=== PATIENT | female | born 1940 | race Hispanic/Latino ===

== ENCOUNTER 2017-01-10 08:10 | Emergency (ER) | payer BC, MEDICARE ==
--- NOTE | 2017-01-10 09:03 | ED PDOC ---
Arrival/HPI - General Historian: Patient - History of Present Illness Time/Duration: 24 hours Symptom Onset: Sudden Symptom Course: Worsening Quality: Pressure Severity Level: Severe <Cam Chaney - Last Filed: 01/10/17 12:18> <Navid Arechiga - Last Filed: 01/22/17 09:14> - General Chief Complaint: Lower Extremity Problem/Injury Time Seen by Provider: 01/10/17 08:12 - History of Present Illness Narrative History of Present Illness (Text): 01/10/17 08:59 This is a 76 year old female with PMHx DVT in 2008 and currently on Coumadin, HLD, COPD, Asthma who presents complaining of left lower extremity pain. Patient states that this feels worse than it did when she had her DVT in the right leg. Patient states that the pain begins on the back of the thigh and radiates up to the mid posterior thigh. Pain is severe and worsened with ambulation, described as a pressure-like sensation. It began after patient woke up from sleep yesterday. Patient denies fever, chills, chest pain, SOB, abdominal pain, dysuria. (Cam Chaney) Past Medical History - Provider Review Nursing Documentation Reviewed: Yes - Infectious Disease Hx of Infectious Diseases: None - Reproductive Menopause: Yes - Cardiac Other/Comment: DVT, cardiac stent - Pulmonary Hx Pulmonary Embolism: Yes - Psychiatric Hx Substance Use: No - Anesthesia Hx Anesthesia Reactions: No <Cam Chaney - Last Filed: 01/10/17 12:18> Family/Social History - Physician Review Nursing Documentation Reviewed: Yes Family/Social History: No Known Family HX Smoking Status: Current Some Days Smoker Hx Alcohol Use: No Hx Substance Use: No <Cam Chaney - Last Filed: 01/10/17 12:18> Allergies/Home Meds <Cam Chaney - Last Filed: 01/10/17 12:18> <Navid Arechiga - Last Filed: 01/22/17 09:14> Allergies/Adverse Reactions: Allergies Penicillins Allergy (Verified 01/10/17 08:54) RASH Home Medications: Home Meds Medication Instructions Recorded Confirmed Albuterol HFA [Ventolin HFA 90 0.09 mg IH PRN PRN 01/10/17 01/10/17 mcg/actuation (8 g)] Albuterol Sulfate [Proair Hfa] 0.09 mg IH PRN PRN 01/10/17 01/10/17 Clopidogrel [Plavix] 75 mg PO DAILY 01/10/17 01/10/17 Tiotropium [place] Inhaler 0 inhaler INH BID 01/10/17 01/10/17 [Spiriva Inhalation Handihaler Device] Warfarin [Coumadin] 5 mg PO MWF 01/10/17 01/10/17 Warfarin [Coumadin] 10 mg PO QOTHERDAY 01/10/17 01/10/17 Review of Systems - Review of Systems Constitutional: Normal. absent: Fevers Eyes: Normal ENT: Normal Respiratory: Normal. absent: SOB Cardiovascular: Normal. absent: Chest Pain Gastrointestinal: Normal Genitourinary Female: Normal. absent: Dysuria Musculoskeletal: Other (left lower extremity pain) Skin: Normal Neurological: Normal Endocrine: Normal Hemo/Lymphatic: Normal Psychiatric: Normal <Cam Chaney S - Last Filed: 01/10/17 12:18> Physical Exam Vital Signs Reviewed: Yes Temperature: Afebrile Blood Pressure: Hypertensive Pulse: Tachycardic Respiratory Rate: Normal Appearance: Positive for: Well-Appearing Pain Distress: Moderate Mental Status: Positive for: Alert and Oriented X 3 - Systems Exam Head: Present: Atraumatic, Normocephalic Pupils: Present: PERRL Extroacular Muscles: Present: EOMI Conjunctiva: Present: Normal Mouth: Present: Moist Mucous Membranes Neck: Present: Normal Range of Motion Respiratory/Chest: Present: Clear to Auscultation, Good Air Exchange. No: Accessory Muscle Use Cardiovascular: Present: Regular Rate and Rhythm, Normal S1, S2 Abdomen: Present: Normal Bowel Sounds. No: Tenderness, Distention Upper Extremity: Present: Normal Inspection, NORMAL PULSES. No: Edema Lower Extremity: Present: Normal Inspection, CALF TENDERNESS, NORMAL PULSES, Swelling (trace edema around left knee), Other (bilateral venous stasis changes) Neurological: Present: GCS=15, CN II-XII Intact Skin: Present: Warm, Dry Psychiatric: Present: Alert, Oriented x 3 <Cam Chaney S - Last Filed: 01/10/17 12:18> Vital Signs Temp Pulse Resp BP Pulse Ox 01/10/17 11:35 78 18 116/61 99 01/10/17 08:20 98.2 F 92 H 16 158/63 H 95 Medical Decision Making <Cam Chaney - Last Filed: 01/10/17 12:18> - Lab Interpretations I have reviewed the lab results: Yes <Navid Arechiga - Last Filed: 01/22/17 09:14> ED Course and Treatment: 01/10/17 09:05 CBC, CMP, CPK, Left LE duplex 01/10/17 10:33 LE Duplex negative for DVT Ordered Xray of left knee with patella 3 views due to severe tenderness to palpation 01/10/17 12:02 Patient discharged with prescription for Tramadol given that patient used Tylenol and Alieve at home without relief. Patient given information for Dr. Westfall. Patient given cane for ambulation and given instructions to return to the ED if worsening symptoms. Patient plans to follow up with her PMD Dr. Mcbride within the week. (Cam Chaney) In agreement with resident note, which includes further HPI details. Patient was seen and evaluated with resident, came up with plan and treatment together. Patient has prior history of DVT. Denies trauma. There are strong and palpable distal pulses. Exam is NOT consistent with acute arterial occlusion. Ultrasound currently is negative for DVT. There is no fever, warmth or erythema. There is full range of motion of hip, knee and ankle. Limitations of studies reviewed with patient, stressed need for FOLLOW-UP with PMD and orthopedic physician given pain. Risks of noncompliance reviewed with patient. I suspect possible small effusion, although able to range and no fever. Advised rest and follow-uup. (Navid Arechiga) - Lab Interpretations Lab Results: 01/10/17 09:28 01/10/17 09:28 Lab Results 01/10/17 09:28: PT 37.5 H*, INR 3.47 H, APTT 40.0 H 01/10/17 09:28: Sodium 143, Potassium 4.8, Chloride 103, Carbon Dioxide 30, Anion Gap 15, BUN 13, Creatinine 0.7, Est GFR ( Amer) > 60, Est GFR (Non- Af Amer) > 60, Random Glucose 102, Calcium 10.0, Total Bilirubin 0.6, AST 30, ALT 35, Alkaline Phosphatase 93, Total Creatine Kinase 93, Total Protein 7.4, Albumin 4.6, Globulin 2.8, Albumin/Globulin Ratio 1.6 01/10/17 09:28: WBC 5.9, RBC 5.08, Hgb 15.4, Hct 45.7, MCV 90.0, MCH 30.3, MCHC 33.7, RDW 14.1, Plt Count 212, MPV 10.0, Gran % 63.3, Lymph % (Auto) 27.0, [place] % (Auto) 8.5 H, Eos % (Auto) 0.9 L, Baso % (Auto) 0.3, Gran # 3.72, Lymph # 1.6 , [place] # 0.5, Eos # 0.1, Baso # 0.02 - RAD Interpretation Radiology Orders: 01/10/17 08:52 DUPLEX LOWER EXTRM VEIN LEFT [US] Stat 01/10/17 10:30 KNEE WITH PATELLA LEFT 3 VIEW [RAD] Stat <Cam Chaney - Last Filed: 01/10/17 12:18> - Scribe Statement The provider has reviewed the documentation as recorded by the Scribe <Navid Arechiga - Last Filed: 01/22/17 09:14> - Scribe Statement Ema Feldman Provider Scribe Attestation: All medical record entries made by the Scribe were at my direction and personally dictated by me. I have reviewed the chart and agree that the record accurately reflects my personal performance of the history, physical exam, medical decision making, and the department course for this patient. I have also personally directed, reviewed, and agree with the discharge instructions and disposition (Navid Arechiga) Disposition/Present on Arrival - Present on Arrival Any Indicators Present on Arrival: No History of DVT/PE: Yes History of Uncontrolled Diabetes: No Urinary Catheter: No History of Decub. Ulcer: No History Surgical Site Infection Following: None - Disposition Have Diagnosis and Disposition been Completed?: Yes Disposition Time: 11:45 <Cam Chaney - Last Filed: 01/10/17 12:18> - Disposition Patient Plan: Discharge <Navid Arechiga - Last Filed: 01/22/17 09:14> - Disposition Diagnosis: Left leg pain Disposition: HOME/ ROUTINE Condition: STABLE Discharge Instructions (ExitCare): Leg Pain (ED) Additional Instructions: The ultrasound today did not show us any evidence of a blood clot in the left leg. Please follow up with Dr. Mcbride within 1 week. We have included the information for Dr. Paulson the orthopedic doctor. Return to the emergency room if you have new or concerning symptoms such as fevers, streaks of redness in the legs. Prescriptions: traMADol [Ultram] 25 mg PO Q6H PRN #8 tab PRN Reason: Pain, Severe (8-10) Referrals: Demarco Paulson DO [Staff Provider] - Follow up with primary Benny Mcbride MD [Primary Care Provider] - Follow up with primary Forms: [id number] (Uzbek)
[2017-01-10 09:08] VITALS: TEMP 98.2
[2017-01-10 09:37] LABS: BASO # 0.02 K/mm3 (0.0-2.0); BASO % 0.3 % (0.0-3.0); EOS # 0.1 (0.0-0.7); EOS % 0.9 % (1.5-5.0); GRAN # 3.72 (1.4-6.5); GRAN % 63.3 % (50.0-68.0); HEMATOCRIT 45.7 % (36.0-48.0); LYMPH # 1.6 (1.2-3.4); MEAN CORPUSCULAR HEMOGLOBIN 30.3 pg (25.0-35.0); MEAN CORPUSCULAR HGB CONC 33.7 g/dl (31.0-37.0); MONO # 0.5 (0.1-0.6); MONO % 8.5 % (1.0-6.0); RED CELL DISTRIBUTION WIDTH 14.1 % (11.5-14.5); WHITE BLOOD COUNT 5.9 10^3/ul (4.5-11.0)
[2017-01-10 09:45] LABS: ALB/GLOB RATIO 1.6 (1.1-1.8); ALKALINE PHOSPHATASE 93 U/L (38-126); ALT/SGPT 35 U/L (7-56); AST/SGOT 30 U/L (14-36); BILIRUBIN,TOTAL 0.6 mg/dL (0.2-1.3); BLOOD UREA NITROGEN 13 mg/dL (7-21); CARBON DIOXIDE 30 mmol/L (21-33); CHLORIDE 103 mmol/L (98-107); GFR AFRICAN-AMERICAN > 60; GLUCOSE,RANDOM 102 mg/dL (70-110); POTASSIUM 4.8 mmol/L (3.6-5.0); SODIUM 143 mmol/L (132-148); TOTAL PROTEIN 7.4 g/dL (5.8-8.3)
[2017-01-10 09:46] LABS: INR 3.47 (0.93-1.08)
[2017-01-10 11:36] VITALS: BP 116/61; PULSE 78; RESP 18; O2SAT 99
--- NOTE | 2017-01-10 17:39 | RAD ---
PROCEDURE: Left Knee Radiographs. HISTORY: Pain. COMPARISON: None. FINDINGS: BONES: No evidence of acute displaced fracture nor dislocation. JOINTS: Tiny posterior patellar osteophyte formation. Joint spaces relatively preserved. JOINT EFFUSION: There is a small suprapatellar joint effusion and suspected mild surrounding soft tissue swelling OTHER FINDINGS: None. IMPRESSION: Tiny posterior superior patellar osteophyte formation with small joint effusion and suspected mild surrounding soft tissue swelling the
--- NOTE | 2017-01-11 17:47 | US ---
PROCEDURE: Left lower extremity venous US HISTORY: Leg pain and swelling. Evaluate for DVT. PHYSICIAN(S): Claude Hugo MD. TECHNIQUE: Duplex sonography and color-flow Doppler with graded compression were used to evaluate the deep venous system of the left lower extremity. FINDINGS: The visualized deep venous system of the left lower extremity is sonographically normal and compressible. Normal wave forms and augmentation are seen. There is no sonographic evidence for deep venous thrombosis in the visualized segments of the left lower extremity. IMPRESSION: 1. No sonographic evidence for deep venous thrombosis in the visualized segments of the left lower extremity.
== END 2017-01-10 12:00 | disposition home or self-care (01) ==
LOC: ED 08:10
DX: M79.662 Pain in left lower leg (principal)

== ENCOUNTER 2017-06-01 07:49 | Emergency (ER) | payer BC, MEDICARE ==
[2017-06-01 08:12] VITALS: RESP 18; TEMP 97.4
--- NOTE | 2017-06-01 08:15 | ED PDOC ---
Arrival/HPI - General Time Seen by Provider: 06/01/17 08:07 Historian: Patient - History of Present Illness Narrative History of Present Illness (Text): 06/01/17 08:05 Ingrid Niño is a 76 year old female, whose past medical history includes coronary stent and pulmonary embolism, who presents to the emergency department complaining of right wrist pains s/p mechanical fall prior to arrival. Patient reports she slipped on ice and fell causing her wrist injury. She states the pain radiates to her upper arm and cannot move her wrist. Patient denies head trauma or loss of consciousness. No other complaints were made. PMD: Dr. Rashid Time/Duration: Prior to Arrival Symptom Onset: Sudden Symptom Course: Unchanged Activities at Onset: Light Context: Street, Slipped Past Medical History - Provider Review Nursing Documentation Reviewed: Yes - Infectious Disease Hx of Infectious Diseases: None - Cardiac Other/Comment: DVT, cardiac stent - Pulmonary Hx Pulmonary Embolism: Yes (x2) - Psychiatric Hx Substance Use: No - Surgical History Hx Coronary Stent: Yes Hx Hysterectomy: Yes - Anesthesia Hx Anesthesia Reactions: No Family/Social History - Physician Review Nursing Documentation Reviewed: Yes Family/Social History: Unknown Family HX Smoking Status: Heavy Smoker > 10 Cigarettes Daily Hx Alcohol Use: No Hx Substance Use: No Allergies/Home Meds Allergies/Adverse Reactions: Allergies Penicillins Allergy (Verified 06/01/17 08:12) RASH Home Medications: Home Meds Medication Instructions Recorded Confirmed Clopidogrel [Plavix] 75 mg PO DAILY 01/10/17 06/01/17 Warfarin [Coumadin] 5 mg PO MWF 01/10/17 06/01/17 Warfarin [Coumadin] 10 mg PO QOTHERDAY 01/10/17 06/01/17 Review of Systems - Physician Review All systems were reviewed & negative as marked: Yes - Review of Systems Constitutional: absent: Fevers Respiratory: absent: SOB Cardiovascular: absent: Chest Pain Musculoskeletal: Other (right wrist pain and deformity) Physical Exam Vital Signs Reviewed: Yes Vital Signs Temp Pulse Resp BP Pulse Ox 06/01/17 08:09 97.4 F L 100 H 18 114/78 96 Temperature: Afebrile Blood Pressure: Normal Pulse: Tachycardic Respiratory Rate: Normal Appearance: Positive for: Well-Appearing, Non-Toxic, Comfortable Pain Distress: None Mental Status: Positive for: Alert and Oriented X 3 - Systems Exam Head: Present: Atraumatic, Normocephalic Pupils: Present: PERRL Extroacular Muscles: Present: EOMI Conjunctiva: Present: Normal Mouth: Present: Moist Mucous Membranes Neck: Present: Normal Range of Motion Upper Extremity: Present: Normal Inspection, NORMAL PULSES, Tenderness, Swelling (right wrist), Neurovascularly Intact, Capillary Refill < 2s, Deformity (dorsal aspect of right wrist). No: Cyanosis, Edema, Normal ROM ( limited ROM in right wrist) Neurological: Present: GCS=15, CN II-XII Intact, Speech Normal Skin: Present: Warm, Dry, Normal Color. No: Rashes Psychiatric: Present: Alert, Oriented x 3, Normal Insight, Normal Concentration Medical Decision Making ED Course and Treatment: 06/01/17 Impression: 76 year old female with right wrist swelling, deformity, and limited range of motion. Patient able to move her fingers Plan: -- Tremadol -- right wrist x-ray -- Reassess and disposition Progress Notes: - RAD Interpretation Radiology Orders: 06/01/17 08:14 WRIST, RIGHT 3 VIEWS [RAD] Stat Collection Card Clerk: Radiologist - Medication Orders Current Medication Orders: Discontinued Medications Tramadol HCl (Ultram) 100 mg PO STAT STA Stop: 06/01/17 08:15 Last Admin: 06/01/17 08:18 Dose: 100 mg RUPA Pain Assessment Document 06/01/17 08:18 RG (Rec: 06/01/17 08:20 RG [id number]) Pain Reassessment Is this a pain reassessment? Yes Sleep Is patient sleeping during reassessment? No Presence of Pain Presence of Pain Yes Pain Scale Used Pain Scale Used Numeric Location Left, Right or Bilateral Right Pain Location Body Site Hand Description Description Constant - Scribe Statement The provider has reviewed the documentation as recorded by the [place] Sadaf Macedo Provider Scribe Attestation: All medical record entries made by the Scribe were at my direction and personally dictated by me. I have reviewed the chart and agree that the record accurately reflects my personal performance of the history, physical exam, medical decision making, and the department course for this patient. I have also personally directed, reviewed, and agree with the discharge instructions and disposition. Disposition/Present on Arrival - Present on Arrival Any Indicators Present on Arrival: No History of DVT/PE: Yes History of Uncontrolled Diabetes: No Urinary Catheter: No History of Decub. Ulcer: No History Surgical Site Infection Following: None - Disposition Have Diagnosis and Disposition been Completed?: Yes Diagnosis: Right wrist fracture Disposition: HOME/ ROUTINE Disposition Time: 10:00 Patient Problems: Current Active Problems Problem Status Onset Right wrist fracture Acute Condition: STABLE Additional Instructions: Go directly to be seen by Dr Xiong. Prescriptions: Tramadol HCl [Ultram] 50 mg PO TID PRN #20 tablet PRN Reason: Pain, Moderate (4-7) Referrals: Sky Xiong MD [Staff Provider] - Follow up with primary
[2017-06-01 10:22] VITALS: BP 112/72; PULSE 99; O2SAT 97
--- NOTE | 2017-06-01 10:49 | RAD ---
PROCEDURE: Right Wrist Radiographs. HISTORY: fall COMPARISON: None. FINDINGS: BONES: There is a comminuted impacted fracture of the distal radius with moderate to severe dorsal angulation. JOINTS: Normal. No dislocation. SOFT TISSUES: Normal. OTHER FINDINGS: None. IMPRESSION: There is a comminuted impacted fracture of the distal radius with moderate to severe dorsal angulation.
== END 2017-06-01 10:22 | disposition home or self-care (01) ==
LOC: ED 07:49
DX: S52.501A Unspecified fracture of the lower end of right radius, initial encounter for closed fracture (principal); W00.0XXA Fall on same level due to ice and snow, initial encounter; F17.210 Nicotine dependence, cigarettes, uncomplicated

== ENCOUNTER 2017-06-10 08:33 | Day surgery (SDC) | payer BC, MEDICARE ==
[2017-06-05 14:13] VITALS: BMI 23.6
[2017-06-10 09:15] LABS: BASO # 0.03 K/mm3 (0.0-2.0); BASO % 0.4 % (0.0-3.0); EOS # 0.1 (0.0-0.7); EOS % 1.2 % (1.5-5.0); GRAN # 3.95 (1.4-6.5); GRAN % 59.3 % (50.0-68.0); HEMOGLOBIN 14.4 g/dL (12.0-16.0); LYMPH # 2.1 (1.2-3.4); MEAN CELL VOLUME 90.4 fl (80.0-105.0); MEAN CORPUSCULAR HEMOGLOBIN 29.5 pg (25.0-35.0); MEAN CORPUSCULAR HGB CONC 32.7 g/dl (31.0-37.0); MEAN PLATELET VOLUME 9.7 fl (7.0-11.0); MONO # 0.5 (0.1-0.6); MONO % 8.1 % (1.0-6.0); RBC 4.88 10^6/uL (3.5-6.1); RED CELL DISTRIBUTION WIDTH 14.4 % (11.5-14.5); WHITE BLOOD COUNT 6.7 10^3/ul (4.5-11.0)
[2017-06-10 09:18] LABS: BLOOD UREA NITROGEN 13 mg/dL (7-21); CALCIUM 10.2 mg/dL (8.4-10.5); GFR AFRICAN-AMERICAN > 60; GFR NON-AFRICAN AMERICAN > 60
[2017-06-10 09:23] VITALS: RESP 20
[2017-06-10 09:30] LABS: INR 1.75 (0.93-1.08); PARTIAL THROMBOPLASTIN TIME 37.7 Seconds (25.1-36.5); PROTHROMBIN TIME 20.3 SECONDS (9.4-12.5)
[2017-06-10] MEDS ORDERED: Midazolam 2 MG/2 ML VIAL ONE (10:27)
[2017-06-10] MEDS ORDERED: Lidocaine 1% Inj (20ml) ONE (10:52)
[2017-06-11 16:05] VITALS: BP 93/48; PULSE 88; TEMP 98; O2SAT 97
== END 2017-06-10 14:15 | disposition home or self-care (01) ==
LOC: SDS 08:33
PROVIDERS: ATTEND Radiology Vascular & Interventional Radiology
DX: R91.8 Other nonspecific abnormal finding of lung field (principal); Z53.8 Procedure and treatment not carried out for other reasons; F17.200 Nicotine dependence, unspecified, uncomplicated; I25.10 Atherosclerotic heart disease of native coronary artery without angina pectoris; J44.9 Chronic obstructive pulmonary disease, unspecified
CPT/HCPCS: 36415; 71250; 80048; 85025; 85610; 85730; J2250; J3010

== ENCOUNTER 2018-06-30 12:03 | Outpatient (CLI) | payer BC, MEDICARE | END 2018-06-30 12:04 | disposition home or self-care (01) | LOC: LAB 12:03 ==

== ENCOUNTER 2018-09-04 09:31 | Outpatient (CLI) | payer BC, MEDICARE | END 2018-09-04 09:32 | disposition home or self-care (01) | LOC: RAD 09:31 ==